=== PATIENT | male | born 1965 | race Caucasian/White ===

== ENCOUNTER 2023-08-30 12:30 | Emergency (ER) | payer OTHER ==
[~2023-08-30] VITALS: Ht 162.6 cm; Wt 77.1 kg
[2023-08-30 12:45] VITALS: BP 130/75; PULSE 85; RESP 18; TEMP 97.8; O2SAT 96
[2023-08-30] MEDS: NACL 0.9% 1,000 ML IV ONE (15:43)
[2023-08-30] MEDS: KETOROLAC 30 MG/ML VIAL IVP ONE (15:44)
[2023-08-30] MEDS ORDERED: IBUP-2213 PO (16:10)
[2023-08-30] MEDS ORDERED: MECL-303 PO (16:10)
[2023-08-30 16:35] VITALS: BP 158/86; PULSE 72; RESP 20; O2SAT 97
== END 2023-08-30 16:35 | disposition home or self-care (01) ==
LOC: MED 12:30
DX: R42 Dizziness and giddiness (principal); R51.9 Headache, unspecified
CPT/HCPCS: 96361; 96374; 99283; J1885; J7030